=== PATIENT | male | born 1985 | race Caucasian/White ===

== ENCOUNTER → 2020-06-09 10:12 | Outpatient (BNVA) | payer BC, SELFPAY | PROVIDERS: Visit Provider Counselor Professional | DX: F90.2 Attention-deficit hyperactivity disorder, combined type (principal); F33.1 Major depressive disorder, recurrent, moderate | CPT/HCPCS: 90791 ==

== ENCOUNTER → 2020-07-07 08:47 | Outpatient (BNVA) | payer BC, SELFPAY | PROVIDERS: Visit Provider Psychiatry & Neurology Psychiatry | DX: F41.1 Generalized anxiety disorder (principal); F71 Moderate intellectual disabilities; F01.50 Vascular dementia, unspecified severity, without behavioral disturbance, psychotic disturbance, mood disturbance, and anxiety; F15.21 Other stimulant dependence, in remission; F12.21 Cannabis dependence, in remission | CPT/HCPCS: 99204 ==

== ENCOUNTER → 2020-08-11 08:18 | Outpatient (BNVA) | payer BC, SELFPAY | PROVIDERS: Visit Provider Psychiatry & Neurology Psychiatry | DX: F41.1 Generalized anxiety disorder (principal); F71 Moderate intellectual disabilities; F12.21 Cannabis dependence, in remission; F15.21 Other stimulant dependence, in remission; F01.50 Vascular dementia, unspecified severity, without behavioral disturbance, psychotic disturbance, mood disturbance, and anxiety | CPT/HCPCS: 99214 ==

== ENCOUNTER → 2020-10-06 08:05 | Outpatient (BNVA) | payer BC, SELFPAY | PROVIDERS: Visit Provider Psychiatry & Neurology Psychiatry | DX: F41.1 Generalized anxiety disorder (principal); F12.21 Cannabis dependence, in remission; F71 Moderate intellectual disabilities; F15.21 Other stimulant dependence, in remission; F01.50 Vascular dementia, unspecified severity, without behavioral disturbance, psychotic disturbance, mood disturbance, and anxiety | CPT/HCPCS: 99213 ==